=== PATIENT | male | born 1985 | race African-American/Black ===

== ENCOUNTER → 2017-09-08 | Outpatient (CLI) | payer OTHER | LOC: MHCPAIN 08:22 | DX: G89.29 Other chronic pain (principal); M47.812 Spondylosis without myelopathy or radiculopathy, cervical region; R51 Headache; M79.1 Myalgia; M79.2 Neuralgia and neuritis, unspecified | CPT/HCPCS: G0463 ==

== ENCOUNTER → 2019-07-10 | Outpatient (CLI) | payer OTHER | LOC: MHCPAIN 09:16 | DX: G89.29 Other chronic pain (principal); M47.817 Spondylosis without myelopathy or radiculopathy, lumbosacral region; M54.81 Occipital neuralgia; M50.90 Cervical disc disorder, unspecified, unspecified cervical region; R51 Headache | CPT/HCPCS: G0463 ==

== ENCOUNTER → 2019-07-25 | Outpatient (CLI) | payer OTHER | LOC: MHCPAIN 10:48 | DX: M79.18 Myalgia, other site (principal) | CPT/HCPCS: J1040 ==

== ENCOUNTER 2019-08-13 12:26 | Emergency (ER) | payer OTHER ==
[~2019-08-13] VITALS: Ht 188 cm; Wt 83.2 kg
[2019-08-13 12:32] VITALS: BP 144/105; TEMP 97.6
[2019-08-13] MEDS ORDERED: VALTREX1 GM PO (14:01)
[2019-08-13 14:11] VITALS: PULSE 62
== END 2019-08-13 14:11 | disposition home or self-care (01) ==
LOC: COL.ER 12:26
DX: B02.9 Zoster without complications (principal)

== ENCOUNTER → 2019-10-24 | Outpatient (CLI) | payer OTHER ==
[~2019-10-24] MED LIST: VALTREX1 GM PO
== END ==
LOC: MHCPAIN 10:45
DX: R51 Headache (principal); M79.18 Myalgia, other site
CPT/HCPCS: G0463; J1040

== ENCOUNTER → 2019-12-26 | Outpatient (CLI) | payer OTHER | LOC: COL.RAD 12:59 | DX: M54.2 Cervicalgia (principal) ==

== ENCOUNTER 2020-01-15 11:23 | Emergency (ER) | payer OTHER ==
[~2020-01-15] VITALS: Ht 188 cm; Wt 86.4 kg
[2020-01-15 11:36] VITALS: TEMP 98.4
[2020-01-15] MEDS ORDERED: ZORVOLEX35 MG PO (12:04)
[2020-01-15] MEDS ORDERED: ULTRAM ER100 MG PO (12:04)
[2020-01-15 13:41] VITALS: BP 140/97; PULSE 63
== END 2020-01-15 13:42 | disposition home or self-care (01) ==
LOC: COL.ER 11:23
DX: M54.6 Pain in thoracic spine (principal); M46.92 Unspecified inflammatory spondylopathy, cervical region; F17.210 Nicotine dependence, cigarettes, uncomplicated; F43.10 Post-traumatic stress disorder, unspecified
CPT/HCPCS: J1885

== ENCOUNTER → 2020-05-01 | Outpatient (CLI) | payer OTHER ==
[~2020-05-01] MED LIST changes: +ULTRAM ER100 MG PO; +ZORVOLEX35 MG PO
== END ==
LOC: MHCPAIN 08:59
DX: M47.812 Spondylosis without myelopathy or radiculopathy, cervical region (principal); M54.6 Pain in thoracic spine; M54.2 Cervicalgia; R51 Headache; G89.29 Other chronic pain
CPT/HCPCS: G0463; J1040

== ENCOUNTER 2023-03-17 12:45 | Emergency (ER) | payer OTHER ==
[~2023-03-17] VITALS: Ht 188 cm; Wt 93.2 kg
[~2023-03-17 12:45] MED LIST changes: +REGLAN 10MG10 MG/TAB PO
[2023-03-17 12:48] VITALS: BP 180/123; TEMP 98.6
[2023-03-17 14:11] VITALS: PULSE 87
== END 2023-03-17 14:16 | disposition home or self-care (01) ==
LOC: COL.ER 12:45
DX: S61.215A Laceration without foreign body of left ring finger without damage to nail, initial encounter (principal); F17.210 Nicotine dependence, cigarettes, uncomplicated; Z28.310 Unvaccinated for COVID-19; W01.198A Fall on same level from slipping, tripping and stumbling with subsequent striking against other object, initial encounter